=== PATIENT | female | born 1975 | race Caucasian/White ===

== ENCOUNTER 2022-12-29 14:43 | Emergency (ER) | payer BC ==
[2022-12-29 15:16] VITALS: BP 116/85; PULSE 91
[2022-12-29] MEDS ORDERED: Sodium Chloride 0.9% 1,000 ML IV ONE (15:52)
[2022-12-29] MEDS ORDERED: Pantoprazole 40 MG Vial IVPUSH ONE (15:53)
[2022-12-29] MEDS ORDERED: Sodium Chloride 0.9% 10 ML Syringe FLUSH PRN (15:53)
[2022-12-29] MEDS ORDERED: Iopamidol 612 MG/ML 100 ML Bottle IVPUSH ONE (16:36)
[2022-12-29] MEDS ORDERED: Sodium Chloride 0.9% 10 ML Syringe FLUSH STA (16:37)
[2022-12-29 16:39] LABS: ESTIMATED GFR 92 mL/min (>60)
[2022-12-29] MEDS ORDERED: LORazepam 2 MG/ML SDV IVPUSH ONE (17:36)
== END 2022-12-29 18:06 | disposition home or self-care (01) ==
LOC: JD.ED 14:43
DX: R10.13 Epigastric pain (principal); R10.12 Left upper quadrant pain; F41.9 Anxiety disorder, unspecified; K21.9 Gastro-esophageal reflux disease without esophagitis; F17.210 Nicotine dependence, cigarettes, uncomplicated; Z88.6 Allergy status to analgesic agent; Z91.048 Other nonmedicinal substance allergy status; Z88.1 Allergy status to other antibiotic agents; Z88.5 Allergy status to narcotic agent; Z88.8 Allergy status to other drugs, medicaments and biological substances; Z79.899 Other long term (current) drug therapy
CPT/HCPCS: 36415; 74177; 80053; 81003; 83690; 84484; 85025; 86140; 96374; 96375; 99284; C9113; J2060; J3490; J7030; Q9967; 93010